=== PATIENT | female | born 1995 ===

== ENCOUNTER 2021-07-22 07:25 | Emergency (ER) | payer SELFPAY ==
[2021-07-22] MEDS ORDERED: SODIUM CHLORIDE 0.9% 1000 ML 1,000 ML IV ONE (07:49)
--- NOTE | 2021-07-22 07:54 | Emergency Department Report ---
ED General Adult HPI - General Chief complaint: Psych Stated complaint: DIABETIC Time Seen by Provider: 07/22/21 07:40 Source: patient Mode of arrival: Ambulatory Limitations: No Limitations - History of Present Illness Initial comments: Patient presents with multiple issues. She states that she just does not feel well. She has not felt well for the last 7 days or so. She states that she has noticed a fruity or acetone a odor to her body. She is concerned that her sugars have been out of control. She has tried changing laundry soap as well as deodorants to mask it, but it did not. Patient states that she has been nauseous. She just does not feel well. There has been no cough or congestion. She has no fevers or chills. Patient denies vomiting or diarrhea. There is no dysuria reported. Patient states that she is also depressed. She states that she has been on medication previously, but is no longer seeing a counselor and is not on medication. She is waiting for her counselor to give her medication. She admits that she occasionally thinks about hurting herself. She will occasionally lock herself in her room. She turns to food as a crutch. She knows that as a diabetic that is problematic. She does try to avoid starches a nd tries to eat more vegetables, but does state that she does use food as a crutch when she is feeling depressed. Patient states that she contemplates suicide at least weekly. She is not actively suicidal at this point. She does not have a specific plan. - Related Data Previous Rx's Medication Instructions Recorded Last Taken Type Doxepin [SINEquan] 10 mg PO QHS #30 capsule 07/22/21 Unknown Rx Escitalopram Oxalate [Lexapro] 5 mg PO QDAY #30 07/22/21 Unknown Rx Allergies Allergy/AdvReac Type Severity Reaction Status Date / Time No Known Allergies Allergy Unverified 07/22/21 07:33 ED Review of Systems ROS: Stated complaint: DIABETIC Other details as noted in HPI Comment: All other systems reviewed and negative Constitutional: denies: fever Eyes: denies: vision change ENT: denies: epistaxis Respiratory: denies: cough Cardiovascular: denies: chest pain Endocrine: denies: unexplained weight loss Gastrointestinal: denies: abdominal pain Musculoskeletal: denies: back pain Skin: denies: rash Neurological: denies: headache Psychiatric: as per HPI Hematological/Lymphatic: denies: easy bruising ED Past Medical Hx - Past Medical History Hx Diabetes: Yes Hx Psychiatric Treatment: Yes (Depression, anxiety) - Family History Family history: diabetes - Social History Smoking Status: Never Smoker Substance Use Type: Alcohol (Holidays) - Medications Home Medications: Home Medications Medication Instructions Recorded Confirmed Last Taken Type Doxepin [SINEquan] 10 mg PO QHS #30 capsule 07/22/21 Unknown Rx Escitalopram Oxalate [Lexapro] 5 mg PO QDAY #30 07/22/21 Unknown Rx ED Physical Exam - General Limitations: No Limitations, Other (Pulse ox noted and normal) General appearance: alert, in no apparent distress, obese - Head Head exam: Present: atraumatic, normocephalic, normal inspection - Eye Eye exam: Present: normal appearance, PERRL, EOMI. Absent: scleral icterus - ENT ENT exam: Present: mucous membranes dry, normal external ear exam - Neck Neck exam: Present: normal inspection. Absent: meningismus - Respiratory Respiratory exam: Present: normal lung sounds bilaterally. Absent: respiratory distress - Cardiovascular Cardiovascular Exam: Present: regular rate, normal rhythm - GI/Abdominal GI/Abdominal exam: Present: soft. Absent: tenderness - Extremities Exam Extremities exam: Present: normal capillary refill - Back Exam Back exam: Absent: CVA tenderness (R), CVA tenderness (L) - Neurological Exam Neurological exam: Present: alert, oriented X3, CN II-XII intact, normal gait. Absent: motor sensory deficit - Psychiatric Psychiatric exam: Present: depressed, flat affect, suicidal ideation (No specific plan) - Skin Skin exam: Present: warm, dry ED Course Vital Signs 07/22/21 07:30 Temperature 98.2 F Pulse Rate 76 Respiratory 18 Rate Blood Pressure 136/87 O2 Sat by Pulse 98 Oximetry - Reevaluation(s) Reevaluation #1: 07/22/21 07:51 IV and labs were ordered. Mental health evaluation was requested. Old records reviewed. Reevaluation #2: 07/22/21 11:44 Labs have been reviewed. Psychiatric evaluation is pending. Reevaluation #3: 07/22/21 12:29 Psychiatric evaluation was complete. Patient has been cleared from their perspective and does not meet criteria for admission. Patient was released with outpatient treatment plan. ED Medical Decision Making - Lab Data Result diagrams: 07/22/21 08:17 07/22/21 08:17 - Medical Decision Making Patient presents with depression as well and fairly well controlled her diabetes. She admitted that she was having problems with her glucose, but it is well controlled here. She does not appear to have any type of other metabolic derangement. There is no obvious infectious pathology. She was medically cleared. From a psychiatric perspective, she admitted to being suicidal. She did not have an active plan. She was seen by psychiatric services and we have arranged for outpatient management. Critical Care Time: No Critical care attestation.: If time is entered above; I have spent that time in minutes in the direct care of this critically ill patient, excluding procedure time. 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 use: without intermediate use Qualified Code(s): E11.65 - Type 2 diabetes mellitus with hyperglycemia Depression Qualifiers: Depression Type: unspecified Qualified Code(s): F32.A - Depression, unspecified Disposition: 01 HOME / SELF CARE / HOMELESS Is pt being admited?: No Condition: Stable Instructions: Diabetes Mellitus Type 2 in Adults (ED), Hyperglycemia, [id number], Type 2 Diabetes Mellitus, Self Care, Adult, Living With Depression Additional Instructions: Professional and Agency Contacts To help [facility](15/12) [place] Crisis Line: Suicide Prevention Line: Crisis Text Line: Text START to 733988 Emergency: 911 Outpatient COMMUNITY Behavioral Health Resources: ENRIQUETA: [facility] [address] [place], [place] [address] TIM: [facility] - [address] [address] JUAN DANIEL: [facility] - [address] [place] [address] Thursday thru Thursday - 8am - 5pm ALEJANDRO: [facility] Address: [address], [place] [address] [facility] Address: [address] [place] [address] Thursday thru Thursday- 7am-2pm [facility] Address: [address], [place] [address] Thursday thru Thursday: 8:30AM-5PM OUTPATIENT MENTAL HEALTH RESOURCES [facility], [address] [facility] [place], [place] [id number] [facility] Lamont Berg MD: [address] [facility] [address] [place] [address] [place], [place] [id number] [facility]: [address] [place] [address] [facility] [place], [place] [id number] [phone] [facility]: [address] [facility] [address] [place] [address] [phone] [facility]: [address] [facility] [place]. [facility] [id number] [facility]: [address] [place] [address] Matt Garcia MD: [address] [facility] [id number] [facility]: [address] [place], [place] [id number] [phone] IN CRISIS AND ACCESS LINE: * Prescriptions: Doxepin [SINEquan] 10 mg PO QHS #30 capsule Escitalopram Oxalate [Lexapro] 5 mg PO QDAY #30 Referrals: CHEL SOLANO MD [Primary Care Provider] - 3-5 Days МАРИЯ JOSHI MD [Staff Physician] - 3-5 Days
[2021-07-22 08:29] LABS: Bacteria,Urine 1+ /HPF (Negative); Bilirubin,Urine NEG (Negative); Blood,Urine NEG (Negative); Color,Urine Straw (Yellow); Mucus,Urine FEW /HPF; Protein,Urine <15 mg/dL mg/dL (Negative); Urobilinogen,Urine < 2.0 mg/dL (<2.0)
[2021-07-22 08:30] LABS: RBC,Urine < 1.0 /HPF (0.0-6.0)
[2021-07-22 08:50] LABS: Amphetamine Screen,Urine Negative; Benzodiazepines Screen,Urine Negative; Cannabinoid Screen,Urine Negative; Cocaine Screen,Urine Negative; Methadone Screen,Urine Negative; Opiate Screen,Urine Negative
[2021-07-22 09:24] LABS: Alanine Aminotransferase 20 units/L (7-56); Albumin 4.6 g/dL (3.9-5); BUN/Creatinine Ratio 15; Blood Urea Nitrogen 12 mg/dL (7-17); Calcium 9.5 mg/dL (8.4-10.2); Hemolysis Index 5
[2021-07-22 09:28] LABS: Hematocrit 38.5 % (30.3-42.9); Hemoglobin 13.4 gm/dl (10.1-14.3); Mean Corpuscular HGB Conc 35 % (30-34); Mean Corpuscular Volume 84 fl (79-97); Platelet Count 379 K/mm3 (140-440); Red Blood Count 4.57 M/mm3 (3.65-5.03)
--- NOTE | 2021-07-22 11:48 | Consultation ---
History of Present Illness - Reason for Consult Consult date: 07/22/21 Reason for consult: depression - History of Present Psychiatric Illness The patient was seen today. She is calm, and cooperative. She is soft spoken. She says she came to the ER for diabetes and to her her nebulizer for asthma control. The patient also says "I suffer from depression and anxiety. I think I'm bipolar too." She says she has trouble socializing, low confidence and self esteem. The patient denies SI/HI at present. She says "no not now, but I've thought about it in the past." She says she was on medications but "they ran out." She could not recall them. She says "one is a green pill." The patient says she has trouble sleeping, and her appetite is out of wack. She says "sometimes I hear someone call my name, but that's it" when asking the patient about any hallucinations. Discussed with the patient compliance with med management, continuos counseling. She denies illicit drug use, alcohol or nicotine PAST PSYCHIATRIC HISTORY Diagnoses: Depression Suicide attempts or Self-harm behavior: Denies Prior psychiatric hospitalizations: Denies Substance Abuse history: Denies Previous psychiatric medications tried: could not recall Outpatient treatment: Denies PAST MEDICAL HISTORY: Asthma, diabetes Family Psychiatric History: None reported SOCIAL HISTORY Marital Status: Single Living Arrangements: roommate Employment Status: Unemployed Access to guns/weapons: None reported Education:6th grade History of Abuse: None reported Legal History: None reported REVIEW OF SYSTEMS Constitutional: Negative for weight loss ENT: Negative for stridor Respiratory: Negative for cough or hemoptysis All other systems reviewed and are negative MENTAL STATUS EXAMINATION General Appearance and Behavior: Age appropriate, good hygiene, wearing appropriate clothes, good eye contact, cooperative polite with questioning. Cooperation: Participating/engaged Psychomotor Behavior: unremarkable and within normal limits Mood: depressed Affect and affective range: congruent with mood Thought Process: Goal oriented Thought Content: Reality oriented Speech: soft spoken Intellectual Functioning: Average Suicidal Ideation: Denies Homicidal Ideation: Denies Hallucinations: Denies Impulse Control: Normal Insight and Judgment: Limited insight and good judgment Memory: Normal Attention: Distractible Orientation: Alert, oriented x4 Assessment and Plan (1) Major depressive disorder Current Visit: Yes Status: Acute RECOMMENDATIONS Lexapro 5mg po daily Doxepin 10mg po qhs Risks, benefits and alternatives of medications discussed with the patient, questions answered and consent obtained from patient. PSYCHOTHERAPY: Supportive psychotherapy provided MEDICAL: Per primary team DELIRIUM PRECAUTIONS: Please re-orient patient frequently, keep lights on during the day, and minimize benzodiazepines and opiates as these medications could worsen patient's confusion. 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 Thank you for the consult. Please contact with any questions and/or concerns. Case staffed with Dr. Herrera Medications and Allergies Allergies Allergy/AdvReac Type Severity Reaction Status Date / Time No Known Allergies Allergy Unverified 07/22/21 07:33 Home Medications Medication Instructions Recorded Confirmed Last Taken Type Doxepin [SINEquan] 10 mg PO QHS #30 capsule 07/22/21 Unknown Rx Escitalopram Oxalate [Lexapro] 5 mg PO QDAY #30 07/22/21 Unknown Rx Mental Status Exam - Vital signs Last Vital Signs Temp 98.2 F 07/22/21 07:30 Pulse 76 07/22/21 07:30 Resp 18 07/22/21 07:30 BP 136/87 07/22/21 07:30 Pulse Ox 98 07/22/21 07:30 Results Result Diagrams: 07/22/21 08:17 07/22/21 08:17 Abnormal lab results 07/22/21 07/22/21 07/22/21 Range/Units 07:32 08:17 08:17 MCHC 35 H (30-34) % RDW 17.0 H (13.2-15.2) % Glucose 118 H (65-100) mg/dL POC Glucose 120 H (70-105) mg/dL All other labs normal.
[2021-07-22 13:15] VITALS: BP 128/76
== END 2021-07-22 13:12 | disposition home or self-care (01) ==
LOC: EDSEX → ED 07:25
DX: E11.65 Type 2 diabetes mellitus with hyperglycemia (principal); F32.A Depression, unspecified; Z79.899 Other long term (current) drug therapy; F17.200 Nicotine dependence, unspecified, uncomplicated
CPT/HCPCS: 36415; 80053; 80307; 81001; 82962; 84443; 84703; 85025; 96360; 99283; J7030; 80320; Q0162; G0480

== ENCOUNTER 2021-08-29 08:20 | Emergency (ER) | payer OTHER ==
--- NOTE | 2021-08-29 09:02 | Event Note ---
ED Screening Note ED Screening Note: SI with many plans no HI hearing voices- spirits- wont tell me what they are saying wants meds adjusted This initial assessment/diagnostic orders/clinical plan/treatment(s) is/are subject to change based on patients health status, clinical progression and re- assessment by fellow clinical providers in the ED. Further treatment and workup at subsequent clinical providers discretion. Patient/guardian urged not to elope from the ED as their condition may be serious if not clinically assessed and managed. Initial orders include: 1013
[2021-08-29 09:41] LABS: Bacteria,Urine 1+ /HPF (Negative); Mucus,Urine FEW /HPF; RBC,Urine < 1.0 /HPF (0.0-6.0); WBC,Urine < 1.0 /HPF (0.0-6.0)
[2021-08-29 09:42] LABS: Amphetamine Screen,Urine Negative; Benzodiazepines Screen,Urine Negative; Cannabinoid Screen,Urine Negative; Cocaine Screen,Urine Negative; Methadone Screen,Urine Negative; Opiate Screen,Urine Negative
[2021-08-29 09:54] LABS: Color,Urine Straw (Yellow)
[2021-08-29 09:55] LABS: Bilirubin,Urine Negative (Negative); Blood,Urine Negative (Negative); Protein,Urine <15 mg/dL mg/dL (Negative)
[2021-08-29 09:56] LABS: Urobilinogen,Urine < 2.0 mg/dL (<2.0)
[2021-08-29 10:05] LABS: Basophils % (Auto) 0.4 % (0.0-1.8); Eosinophils # (Auto) 0.4 K/mm3 (0.0-0.4); Eosinophils % (Auto) 4.7 % (0.0-4.3); Hemoglobin 12.7 gm/dl (10.1-14.3); Lymphocytes # (Auto) 3.5 K/mm3 (1.2-5.4); Lymphocytes % (Auto) 45.6 % (13.4-35.0); Mean Corpuscular HGB Conc 33 % (30-34); Mean Corpuscular Volume 83 fl (79-97); Monocytes # (Auto) 0.4 K/mm3 (0.0-0.8); Monocytes % (Auto) 5.6 % (0.0-7.3); Platelet Count 409 K/mm3 (140-440); Red Blood Count 4.68 M/mm3 (3.65-5.03); Red Cell Distribution Width 16.6 % (13.2-15.2)
[2021-08-29 10:07] LABS: Alanine Aminotransferase 20 units/L (7-56); Albumin 4.9 g/dL (3.9-5); Blood Urea Nitrogen 14 mg/dL (7-17); Calcium 9.6 mg/dL (8.4-10.2); Hemolysis Index 10
[2021-08-29 10:16] LABS: BUN/Creatinine Ratio 20
--- NOTE | 2021-08-29 11:12 | Consultation ---
History of Present Illness - Reason for Consult Consult date: 08/29/21 Reason for consult: Mental health evaluation - History of Present Psychiatric Illness The patient is a 26 year old female with history of depression. The patient was seen today. She states she came to the ED because she was having shortness of breath. She reports ongoing depression and anxiety. She reports non compliant with psychotropic meds. The patient is paranoid stating "I received a call from this hospital telling me to come back." She denies any current suicidal/homicidal ideation and denies hallucinations but states she is in touch with her spiritual side. PAST PSYCHIATRIC HISTORY Diagnoses: Depression Suicide attempts or Self-harm behavior: Denies Prior psychiatric hospitalizations: Denies Substance Abuse history: Denies Previous psychiatric medications tried: could not recall Outpatient treatment: Denies PAST MEDICAL HISTORY: Asthma, diabetes Family Psychiatric History: None reported SOCIAL HISTORY Marital Status: Single Living Arrangements: roommate Employment Status: Unemployed Access to guns/weapons: None reported Education:6th grade History of Abuse: None reported Legal History: None reported REVIEW OF SYSTEMS Constitutional: Negative for weight loss ENT: Negative for stridor Respiratory: Negative for cough or hemoptysis All other systems reviewed and are negative MENTAL STATUS EXAMINATION General Appearance and Behavior: Age appropriate, good hygiene, wearing appropriate clothes, good eye contact, cooperative polite with questioning. Cooperation: Participating/engaged Psychomotor Behavior: unremarkable and within normal limits Mood: depressed Affect and affective range: congruent with mood Thought Process: Goal oriented Thought Content: Reality oriented Speech: soft spoken Intellectual Functioning: Average Suicidal Ideation: Denies Homicidal Ideation: Denies Hallucinations: Denies Impulse Control: Normal Insight and Judgment: Limited insight and good judgment Memory: Normal Attention: Distractible Orientation: Alert, oriented x4 Assessment and Plan (1) Bipolar disorder Current Visit: Yes Status: Acute RECOMMENDATIONS Continue 1013 Zyprexa 5mg po BID Risks, benefits and alternatives of medications discussed with the patient, questions answered and consent obtained from patient. PSYCHOTHERAPY: Supportive psychotherapy provided MEDICAL: Per primary team DELIRIUM PRECAUTIONS: Please re-orient patient frequently, keep lights on during the day, and minimize benzodiazepines and opiates as these medications could worsen patient's confusion. 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 FOLLOW-UP: Will follow. Thank you for the consult. Please contact with any questions and/or concerns. Case staffed with Dr. Herrera Medications and Allergies Medications and Allergies Allergies Allergy/AdvReac Type Severity Reaction Status Date / Time No Known Allergies Allergy Unverified 07/22/21 07:33 Home Medications Medication Instructions Recorded Confirmed Last Taken Type Doxepin [SINEquan] 10 mg PO QHS #30 capsule 07/22/21 Unknown Rx Escitalopram Oxalate [Lexapro] 5 mg PO QDAY #30 07/22/21 Unknown Rx Metformin HCl [metFORMIN] 500 mg PO BID #60 tab 07/22/21 Unknown Rx Doxepin [SINEquan] 10 mg PO QHS 30 Days #30 capsule 08/29/21 Unknown Rx Escitalopram [Lexapro] 10 mg PO DAILY 30 Days #30 tablet 08/29/21 Unknown Rx Mental Status Exam - Vital signs Last Vital Signs Temp 98.8 F 08/29/21 08:46 Pulse 80 08/29/21 09:51 Resp 12 08/29/21 09:51 BP 148/98 08/29/21 09:51 Pulse Ox 100 08/29/21 10:11 Results Result Diagrams: 08/29/21 09:19 08/29/21 09:19 Abnormal lab results 08/29/21 08/29/21 08/29/21 Range/Units 09:19 09:19 09:19 MCH 27 L (28-32) pg RDW 16.6 H (13.2-15.2) % Lymph % (Auto) 45.6 H (13.4-35.0) % Eos % (Auto) 4.7 H (0.0-4.3) % Sodium 135 L (137-145) mmol/L Glucose 128 H (65-100) mg/dL Acetaminophen 5.0 L (10.0-30.0) ug/mL All other labs normal.
--- NOTE | 2021-08-29 12:22 | XRay Report ---
CHEST 1 VIEW INDICATION / CLINICAL INFORMATION: Chest Pain. COMPARISON: None available. FINDINGS: SUPPORT DEVICES: None. HEART / MEDIASTINUM: No significant abnormality. LUNGS / PLEURA: The lungs are clear. No pneumothorax. BONES: No significant osseous abnormality. ADDITIONAL FINDINGS: No significant additional findings. IMPRESSION: 1. No active cardiopulmonary disease. Signer Name: Hernandez Brannon II, MD Signed: 08/29/2021 12:18 PM Workstation Name: [id number]
[2021-08-29 13:49] VITALS: BP 124/73
--- NOTE | 2021-08-29 17:46 | Emergency Department Report ---
ED Psych HPI - General Chief Complaint: Psych Stated Complaint: ASTHMA/DIABETES Source: patient Mode of arrival: Ambulatory Limitations: No Limitations - History of Present Illness Initial Comments: Patient reports feeling very depressed and having thoughts of ending her life and sometimes feeling life is not worth living. Patient has however that today she does not want to hurt herself or others but feels very depressed, unable to sleep. Patient also adds having history of asthma that acts up once in a while but today she does not feel any chest tightness, wheezing or shortness of breath MD Complaint: suicidal ideation, feels depressed -: Sudden Associated Psychiatric Symptoms: depression History of same: Yes Quality: intermittent Improves With: none Worsens With: none Associated Symptoms: insomnia. denies: confusion, headache, vomiting If Self Harm: admits thoughts of - Related Data Previous Rx's Medication Instructions Recorded Last Taken Type Doxepin [SINEquan] 10 mg PO QHS #30 capsule 07/22/21 Unknown Rx Escitalopram Oxalate [Lexapro] 5 mg PO QDAY #30 07/22/21 Unknown Rx Metformin HCl [metFORMIN] 500 mg PO BID #60 tab 07/22/21 Unknown Rx Doxepin [SINEquan] 10 mg PO QHS 30 Days #30 capsule 08/29/21 Unknown Rx Escitalopram [Lexapro] 10 mg PO DAILY 30 Days #30 tablet 08/29/21 Unknown Rx Allergies Allergy/AdvReac Type Severity Reaction Status Date / Time No Known Allergies Allergy Unverified 07/22/21 07:33 ED Review of Systems ROS: Stated complaint: ASTHMA/DIABETES Other details as noted in HPI Comment: All other systems reviewed and negative Constitutional: denies: chills, fever Eyes: denies: eye pain, eye discharge, vision change ENT: denies: ear pain, throat pain Respiratory: see HPI, cough, shortness of breath. denies: wheezing Cardiovascular: denies: chest pain, palpitations Endocrine: no symptoms reported Gastrointestinal: denies: abdominal pain, nausea, diarrhea Genitourinary: denies: urgency, dysuria, discharge Musculoskeletal: denies: back pain, joint swelling, arthralgia Skin: denies: rash, lesions Neurological: denies: headache, weakness, paresthesias Psychiatric: depression, suicidal thoughts. denies: anxiety Hematological/Lymphatic: denies: easy bleeding, easy bruising ED Past Medical Hx - Past Medical History Hx Diabetes: Yes Hx Psychiatric Treatment: Yes (Depression, anxiety) - Surgical History Past Surgical History?: Yes Additional Surgical History: tonsils - Social History Smoking Status: Unknown if ever smoked - Medications Home Medications: Home Medications Medication Instructions Recorded Confirmed Last Taken Type Doxepin [SINEquan] 10 mg PO QHS #30 capsule 07/22/21 Unknown Rx Escitalopram Oxalate [Lexapro] 5 mg PO QDAY #30 07/22/21 Unknown Rx Metformin HCl [metFORMIN] 500 mg PO BID #60 tab 07/22/21 Unknown Rx Doxepin [SINEquan] 10 mg PO QHS 30 Days #30 capsule 08/29/21 Unknown Rx Escitalopram [Lexapro] 10 mg PO DAILY 30 Days #30 tablet 08/29/21 Unknown Rx ED Physical Exam - General Limitations: No Limitations General appearance: alert, in no apparent distress - Head Head exam: Present: atraumatic, normocephalic - Eye Eye exam: Present: normal appearance - ENT ENT exam: Present: mucous membranes moist - Neck Neck exam: Present: normal inspection - Respiratory Respiratory exam: Present: normal lung sounds bilaterally. Absent: respiratory distress - Cardiovascular Cardiovascular Exam: Present: regular rate, normal rhythm. Absent: systolic murmur, diastolic murmur, rubs, gallop - GI/Abdominal GI/Abdominal exam: Present: soft, normal bowel sounds - Extremities Exam Extremities exam: Present: normal inspection - Back Exam Back exam: Present: normal inspection - Neurological Exam Neurological exam: Present: alert, oriented X3 - Psychiatric Psychiatric exam: Present: depressed, flat affect - Skin Skin exam: Present: warm, dry, intact, normal color. Absent: rash ED Course Vital Signs 08/29/21 08/29/21 08/29/21 08:46 09:51 10:01 Temperature 98.8 F Pulse Rate 67 80 76 Respiratory 18 12 13 Rate Blood Pressure 148/98 116/75 Blood Pressure 148/92 [Right] O2 Sat by Pulse 99 100 100 Oximetry 08/29/21 08/29/21 08/29/21 10:11 10:15 10:31 Temperature Pulse Rate 67 73 Respiratory 19 13 Rate Blood Pressure 116/75 116/75 Blood Pressure [Right] O2 Sat by Pulse 100 99 99 Oximetry 08/29/21 08/29/21 08/29/21 10:45 11:01 11:15 Temperature Pulse Rate 62 58 L 65 Respiratory 21 18 11 L Rate Blood Pressure 116/75 135/80 135/80 Blood Pressure [Right] O2 Sat by Pulse 99 100 97 Oximetry 08/29/21 08/29/21 08/29/21 11:31 11:45 12:01 Temperature Pulse Rate 71 83 86 Respiratory 22 17 14 Rate Blood Pressure 135/80 135/80 125/77 Blood Pressure [Right] O2 Sat by Pulse 100 100 98 Oximetry 08/29/21 08/29/21 08/29/21 12:45 13:01 13:15 Temperature Pulse Rate 88 83 88 Respiratory 21 16 13 Rate Blood Pressure 125/77 124/73 124/73 Blood Pressure [Right] O2 Sat by Pulse 97 99 98 Oximetry 08/29/21 13:31 Temperature Pulse Rate Respiratory Rate Blood Pressure 124/73 Blood Pressure [Right] O2 Sat by Pulse 98 Oximetry ED Medical Decision Making - Lab Data Result diagrams: 08/29/21 09:19 08/29/21 09:19 - Differential Diagnosis Bipolar disease, severe depression, suicidal thoughts, asthma exacerbation, Critical care attestation.: If time is entered above; I have spent that time in minutes in the direct care of this critically ill patient, excluding procedure time. ED Disposition Clinical Impression: Severe major depression Disposition: [address] [place] [address] Is pt being admited?: No Does the pt Need Aspirin: No Condition: Stable Prescriptions: Doxepin [SINEquan] 10 mg PO QHS 30 Days #30 capsule Escitalopram [Lexapro] 10 mg PO DAILY 30 Days #30 tablet Referrals: PRIMARY CARE, [Primary Care Provider] - 3-5 Days
== END 2021-08-29 16:32 ==
LOC: ED 08:20
DX: F32.9 Major depressive disorder, single episode, unspecified (principal); E11.9 Type 2 diabetes mellitus without complications; Z20.822 Contact with and (suspected) exposure to COVID-19
CPT/HCPCS: 71045; 80053; 80307; 81001; 84703; 85025; 99285; U0003; 80320; G0480